=== PATIENT | male | born 1960 | race Caucasian/White ===

== ENCOUNTER 2020-02-08 14:13 | Observation (INO) | payer MEDICARE, MEDICAID ==
[~2020-02-08] VITALS: Ht 182.9 cm; Wt 101.6 kg
--- NOTE | 2020-02-08 14:13 | NUR ---
PT TO ROOM VIA EMS STRETCHER FOR BEDSIDE TRIAGE
[2020-02-08] MEDS ORDERED: SERTRALINE100 MG PO (14:46)
[2020-02-08] MEDS ORDERED: KEPPRA500 M2 PO (14:49)
[2020-02-08] MEDS ORDERED: TOPIRAMATE25 MG PO (14:50)
[2020-02-08] MEDS ORDERED: GABAPENTIN300 M2 PO (14:50)
[2020-02-08] MEDS ORDERED: CARVEDILOL6.25 MG PO (14:52)
[2020-02-08] MEDS ORDERED: EQ ASPIRIN81 M1 PO (14:53)
[2020-02-08] MEDS ORDERED: LISINOPRIL40 MG PO (14:53)
[2020-02-08] MEDS ORDERED: GLIMEPIRIDE2 MG PO (14:54)
[2020-02-08 15:02] LABS: HEMATOCRIT 31.8 % (39.0-50.0); HEMOGLOBIN 10.1 g/dl (14.0-18.0); IMMATURE GRANULOCYTES 0.2 % (0.0-5.0); MEAN CELL VOLUME 83.7 fL CALC (80.0-100.0); MEAN CORPUSCULAR HGB 26.6 pG CALC (26.0-32.0); MEAN CORPUSCULAR HGB CONC 31.8 g/dL CAL (32.0-36.0); NEUT# 4.54 thou/uL (1.82-7.42); RED BLOOD COUNT 3.8 mill/uL (4.70-6.10); RED CELL DISTRI WIDTH 13.2 % (11.5-15.5)
--- NOTE | 2020-02-08 15:10 | NUR ---
PT RESTING PAIN IMPROVED AWAITING LAB RESULTS
[2020-02-08 15:16] LABS: ALBUMIN 3.7 g/dL (3.2-5.0); BILIRUBIN, TOTAL 0.5 mg/dL (0.0-1.4); CREATININE 1.6 mg/dL (0.7-1.3); POTASSIUM 3.8 mmol/l (3.5-5.1); TOTAL PROTEIN 6.5 g/dL (6.3-8.2)
--- NOTE | 2020-02-08 15:33 | NUR ---
PT STATES PAIN RESOLVED AT THIS TIME
--- NOTE | 2020-02-08 16:10 | NUR ---
PT ALERT AND ORIENTED, STATES PAIN IS STILL RESOLVED, CALL JIMENEZ WITHIN REACH
--- NOTE | 2020-02-08 16:45 | NUR ---
PT TRANSPORTED TO MED SURG ROOM 269 ON TELE VIA WC, STOOD AND TRASNFERRED TO BED WITH NO ASSIST, STEADY GAIT AND ACCEPTING NURSE AWARE OF ARRIVAL.
--- NOTE | 2020-02-08 16:53 | NUR ---
PT ARRIVED VIA WC WITH STAFF
[2020-02-08 17:05] VITALS: BP 172/87
--- NOTE | 2020-02-08 17:20 | NUR ---
ASSESSMENT IS COMPLETED: IV SITE IS FREE FROM REDNESS OR EDEMA. HR IS REG,PULSES ARE STRONG X4, ABD IS SOFT WITH ACTIVE BS. BREATH SOUNDS ARE CLEAR,BILATERALLY., TELE MONITOR IN PLACE.
[2020-02-08 17:48] LABS: URINE BILIRUBIN - DIPSTICK NEGATIVE (NEGATIVE); URINE BLOOD DIPSTICK NEGATIVE (NEGATIVE); URINE CLARITY CLEAR; URINE COLOR YELLOW; URINE GLUCOSE - DIPSTICK NEGATIVE (NEGATIVE); URINE KETONE TRACE mg/dL (NEGATIVE); URINE LEUK ESTERASE NEGATIVE (Negative); URINE NITRITE - DIPSTICK NEGATIVE (Negative); URINE PH 5.5 (4.5-8.0); URINE SPECIFIC GRAVITY >=1.030
[2020-02-08 17:50] LABS: URINE PROTEIN - DIPSTICK Trace mg/dL (NEG-TRACE)
[2020-02-08 18:10] VITALS: BP 175/91
--- NOTE | 2020-02-08 18:39 | NUR ---
PT IS RELAXING IN BED WITH NO DISTRESS NOTED. IV SITE IS FREE FROM REDNESS OR EDEMA.
[2020-02-08 18:56] VITALS: BP 185/91
--- NOTE | 2020-02-08 19:08 | NUR ---
REPORT RECEIVED FROM ABELINO BUTTERFIELD. PT RESTING IN BED NO S/S OF DISTRESS AT THIS TIME. WILL CONTINUE TO MONITOR.
--- NOTE | 2020-02-08 19:55 | NUR ---
PT RESTING IN BED ALERT AND ORIENTED. RESPIRATIONS EVEN AND UNLABORED ON RA. LUNGS SOUND CLEAR. PEDAL PULSES ARE STRONG. TELE IN PLACE. CALL JIMENEZ WITHIN REACH WILL CONTINUE TO MONITOR.
[2020-02-08 23:21] VITALS: BP 169/98
[2020-02-09] VITALS (7 sets, daily range): BP systolic 148–182; BP diastolic 76–129
--- NOTE | 2020-02-09 00:10 | NUR ---
PT RESTING IN BED NO S/S OF DISTRESS AT THIS TIME. WILL CONTINUE TO MONITOR.
--- NOTE | 2020-02-09 02:10 | NUR ---
REPORT RECEIVED FROM ABELINO BUTTERFIELD. PT RESTING IN BED NO S/S OF DISTRESS AT THIS TIME. WILL CONTINUE TO MONITOR.
--- NOTE | 2020-02-09 04:30 | NUR ---
PT RESTING IN BED, NO S/S OF DISTRESS AT THIS TIME
[2020-02-09 13:09] LABS: CHOLESTEROL HDL RATIO 3.7 (<4.4 (CALC)); MAGNESIUM 1.9 mg/dL (1.6-2.3)
--- NOTE | 2020-02-09 13:40 | NUR ---
bp 179/90 clonidine 0.2mg po given
[2020-02-09 13:48] LABS: ANION GAP 15 (6-22 (CALC)); BUN 24 mg/dL (9-20); BUN/CREATININE RATIO 18 (12-20 (CALC)); CARBON DIOXIDE 19 mmol/l (22-30); CHLORIDE 108 mmol/l (95-108); CREATININE 1.3 mg/dL (0.7-1.3); GFR 57 ML/MIN (>=60 (CALC)); GFR FOR AFR.AMER. > 60 ML/MIN (>=60 (CALC)); POTASSIUM 4.3 mmol/l (3.5-5.1); SODIUM 138 mmol/l (137-146)
--- NOTE | 2020-02-09 16:07 | NUR ---
BP 179/90 APPRESSOLINE 10MG GIVEN
--- NOTE | 2020-02-09 19:35 | NUR ---
REPORT RECEIVED FROM GALLO MARTIN. PT RESTING IN BED, ALERT AND ORIENTED. RESPIRATIONS EVEN AND UNLABORED ON RA. LUNGS SOUND CLEAR. PEDAL PULSES ARE STRONG. PT REPORTS HAVING MODERATE PAIN IN LOWER BACK, PT REFUSED COMFORT MEASURES. MD TO BE NOTIFED. TELE IN PLACE. PT PROVIDED WITH A SNACK PER REQUEST. SAFETY PRECAUTIONS IN PLACE. WILL CONTINUE TO MONITOR.
[2020-02-10 00:07] VITALS: BP 158/83
--- NOTE | 2020-02-10 00:16 | NUR ---
PT ASKED RATE EXAMINER NOT TO COME BACK IN TO DO VITAL SIGNS ANYMORE TONIGHT. CUTTING MACHINE TENDER HELPER WENT IN TO DISCUSS THE IMPORTANCE OF OBTAINING VITAL SIGNS FOR PATIENTS ON CARDIAC MONITORING. PATIENT SEEMS AGITATED STATING "I HAVEN'T FUCKING SLEPT SINCE I'VE BEEN IN HERE" CUTTING MACHINE TENDER HELPER ASKED PATIENT NOT TO CUSS AT STAFF, AGAIN TRIED TO EXPLAIN THE IMPORTANCE OF OBTAINING VITAL SIGNS, AND HOSPITAL POLICY AND PROCEDURE. PT CONTINUES TO BE BELLIGERENT, CUTTING MACHINE TENDER HELPER LEFT THE ROOM AND SUPERVISER NOTIFIED.
--- NOTE | 2020-02-10 01:00 | NUR ---
PT CALLED NURSES STATION WANTING TO TALK TO NURSE. UPON ENTERING PT ROOM PT APOLOGIZED FOR EARLIER BEHAVIOR.
--- NOTE | 2020-02-10 04:09 | NUR ---
PT RESTING IN BED, NO S/S OF DISTRESS AT THIS TIME. SAFETY PRECAUTIONS IN PLACE. WILL CONTINUE TO MONITOR.
[2020-02-10 05:19] VITALS: BP 137/80
[2020-02-10 07:22] VITALS: BP 145/84
--- NOTE | 2020-02-10 07:22 | NUR ---
PT RESTING IN BED, NO SIGNS OF DISTRESS NOTED, RESP EVEN AND UNLABORED. PT ALERT AND ORIENTED X3, DISCUSSED POC, NO SIGNS OF DISTRESS NOTED, PT VOICES NO NEEDS OR COMPLAINTS AT THIS TIME. ASSESSMENT COMPLETED, CALL LIGHT IN REACH,CONTINUE TO MONITOR.
[2020-02-10 09:08] LABS: HEMATOCRIT 37.2 % (39.0-50.0); HEMOGLOBIN 11.4 g/dl (14.0-18.0); MEAN CELL VOLUME 86.1 fL CALC (80.0-100.0); MEAN CORPUSCULAR HGB 26.4 pG CALC (26.0-32.0); MEAN CORPUSCULAR HGB CONC 30.6 g/dL CAL (32.0-36.0); RED BLOOD COUNT 4.32 mill/uL (4.70-6.10); RED CELL DISTRI WIDTH 13.2 % (11.5-15.5)
[2020-02-10 09:24] LABS: ANION GAP 13 (6-22 (CALC)); BUN 29 mg/dL (9-20); BUN/CREATININE RATIO 21 (12-20 (CALC)); CARBON DIOXIDE 19 mmol/l (22-30); CHLORIDE 109 mmol/l (95-108); CREATININE 1.4 mg/dL (0.7-1.3); GFR 52 ML/MIN (>=60 (CALC)); GFR FOR AFR.AMER. > 60 ML/MIN (>=60 (CALC)); MAGNESIUM 2.1 mg/dL (1.6-2.3); POTASSIUM 4.3 mmol/l (3.5-5.1); SODIUM 137 mmol/l (137-146)
[2020-02-10] MEDS ORDERED: AMLODIPINE BESYL5 MG PO (10:03)
[2020-02-10] MEDS ORDERED: PLAVIX75 MG PO (10:03)
[2020-02-10 11:28] VITALS: BP 154/77
[2020-02-10] MEDS ORDERED: HYDROCO/APAP1 TA9 PO (11:30)
--- NOTE | 2020-02-10 13:19 | NUR ---
PT SITTING IN COUCH AT BEDSIDE, DISCUSSED DICHARGE INSTRUCTIONS WITH PT, PT VERBALIZED UNDERSTANDING. IV SITE REMOVED, CATHETER INTACT. PT REQUESTING CLOTHING TO WEAR TO TAKE HOME, AGRICULTURE EXTENSION SPECIALIST BROUGHT DISPOSIBLE SCRUBS TO PT. CASE MANAGEMENT TO BEDSIDE TO ASSIST PT. CALL LIGHT IN REACH,CONTINUE TO MONITOR.
--- NOTE | 2020-02-10 13:47 | NUR ---
Discharge instructions given. Patient verbalizes understanding of same. Discharged in stable condition via Ambulatory to Home with friend. All belongings sent with pt.
== END 2020-02-10 13:47 | disposition home or self-care (01) ==
LOC: ED 14:13 → ED-I 15:21 → ED 15:43 → MS2 15:44
PROVIDERS: Family Medicine; Nurse Practitioner; ADMIT Internal Medicine; ATTEND Internal Medicine
DX: R07.9 Chest pain, unspecified (principal); I10 Essential (primary) hypertension; E11.9 Type 2 diabetes mellitus without complications; I25.10 Atherosclerotic heart disease of native coronary artery without angina pectoris; N28.9 Disorder of kidney and ureter, unspecified; I42.9 Cardiomyopathy, unspecified; I25.2 Old myocardial infarction; T45.526A Underdosing of antithrombotic drugs, initial encounter; Z91.128 Patient's intentional underdosing of medication regimen for other reason; Z95.5 Presence of coronary angioplasty implant and graft; Z79.82 Long term (current) use of aspirin; Z79.84 Long term (current) use of oral hypoglycemic drugs; Z95.810 Presence of automatic (implantable) cardiac defibrillator; Z86.79 Personal history of other diseases of the circulatory system; Z20.828 Contact with and (suspected) exposure to other viral communicable diseases
CPT/HCPCS: G0378